=== PATIENT | female | born 1980 | race Caucasian/White ===

== ENCOUNTER 2021-09-08 09:39 | Day surgery (SDC) | payer BC ==
[~2021-09-08] VITALS: Ht 165.1 cm; Wt 67.8 kg
[~2021-09-08 09:39] MED LIST: IBUP800 PO
--- NOTE | 2021-09-08 11:04 | NUR ---
09/08/21 1100 [place] CARRERA PT UPDATED THAT DR. LE IS RUNNING BEHIND BY A HALF HOUR AT THIS TIME. WARM BLANKETS PROVIDED. PT'S AT BEDSIDE. CALL LIGHT WITHIN REACH. WILL CONT TO MONITOR.
== END 2021-09-08 13:36 | disposition home or self-care (01) ==
LOC: ORSCSDS 09:39
PROVIDERS: Orthopaedic Surgery
PROC: 0LN30ZZ Release Right Upper Arm Tendon, Open Approach (ICD-10-PCS; principal; 2021-09-08 11:00)
PROC: 0PBF0ZZ Excision of Right Humeral Shaft, Open Approach (ICD-10-PCS; principal; 2021-09-08 11:00)
DX: M77.11 Lateral epicondylitis, right elbow (principal); F41.9 Anxiety disorder, unspecified
CPT/HCPCS: J0690; J1100; J2250; J2405; J2704; J3010; J7120